=== PATIENT | male | born 1965 | race Caucasian/White ===

== ENCOUNTER 2016-08-31 20:10 | Emergency (ER) | payer OTHER ==
[2016-08-31 20:15] VITALS: O2SAT 95
[2016-08-31] MEDS ORDERED: TDAP ADULT 0.5 ML INJ (BOOSTRIX) IM ONE (21:14)
--- NOTE | 2016-08-31 22:14 | EDPHY ---
H & P Time Seen by Provider: 08/31/16 21:10 HPI/ROS: CHIEF COMPLAINT: Laceration right index finger HISTORY OF PRESENT ILLNESS: 51-year-old male presents to the emergency department by private vehicle with a laceration to the right index finger. The patient was at home doing dishes and was cleaning a knife and accidentally cut his right index finger. The incident happened just prior to arrival. He is unsure of his last tetanus shot. He is right-hand dominant. ROS: Denies numbness or tingling in his fingers, retained foreign body or other injuries. Past Medical/Surgical History: Negative Social History: , teacher at [employer] Smoking Status: Never smoked Physical Exam: On examination the patient has a 2.5 cm flap laceration to the dorsal aspect of the right index finger overlying PIP joint. He has full flexion and extension of his right index finger. He has normal sensation to light touch with normal 2 point discrimination. No palpable bony tenderness. The other fingers do not appear injured. Constitutional: Initial Vital Signs Temperature (C) 36.5 C 08/31/16 20:13 Heart Rate 62 08/31/16 20:13 Respiratory Rate 16 08/31/16 20:13 Blood Pressure 117/75 08/31/16 20:13 O2 Sat (%) 95 08/31/16 20:13 O2 Delivery Mode Room Air Allergies/Adverse Reactions: diclofenac Allergy (Verified 08/31/16 20:12) Home Medications: Medication Instructions Recorded Celexa 08/31/16 Seroquel 08/31/16 MDM/Departure - MDM Procedures: Laceration repair. Verbal consent was obtained from the patient. The 2.5 cm flap laceration on the right index finger was anesthetized using digital block using 1% lidocaine without epinephrine and 0.5% bupivacaine without epinephrine. The wound was irrigated with saline, draped and explored to its base with a gloved finger. There were no deep structures involved. No tendon injury was identified. The wound was repaired with 4 0 Ethilon, 6 sutures. The wound repair was simple. The procedure was performed by myself. Medications Given: Discontinued Medications Diphtheria/Tetanus/Acell Pertussis (Boostrix) 0.5 ml IM .ONCE ONE Stop: 08/31/16 21:15 Last Admin: 08/31/16 21:31 Dose: 0.5 ml ED Course/Re-evaluation: 51-year-old male presents with index finger laceration. The wound was repaired , see procedure note. The patient's tetanus shot was updated. Patient was given wound care precautions. - Depart Disposition: Home, Routine, Self-Care Clinical Impression: Laceration of right index finger Condition: Good Instructions: Care For Your Stitches (ED), Laceration (ED), Acute Wounds (ED) Additional Instructions: Wound Care Follow-Up: Removal of sutures in 10 days. Suture removal is complimentary in uncomplicated cases. Infection or abnormal findings would require reevaluation by the MD. In that case, you may be billed. Return if he notices any signs or symptoms of infection such as redness, swelling, increased pain, fever, purulent drainage. Your given a tetanus shot today in the emergency department. Ibuprofen 600 mg every 8 hours as needed for pain. Referrals: LENA HAWKINS [Primary Care Provider] - As per Instructions
[2016-08-31 22:34] VITALS: BP 119/80; PULSE 55; RESP 14; TEMP 98.2
== END 2016-08-31 22:33 | disposition home or self-care (01) ==
DX: S61.210A Laceration without foreign body of right index finger without damage to nail, initial encounter (principal); Z23 Encounter for immunization; W26.0XXA Contact with knife, initial encounter; Y92.009 Unspecified place in unspecified non-institutional (private) residence as the place of occurrence of the external cause; Y99.8 Other external cause status; Y93.G1 Activity, food preparation and clean up
CPT/HCPCS: L3925